=== PATIENT | male | born 1955 | race African-American/Black ===

== ENCOUNTER 2017-07-17 16:30 | Emergency (ER) | payer OTHER ==
[~2017-07-17] VITALS: Ht 182.9 cm; Wt 82.0 kg
[2017-07-17 17:42] VITALS: BP 150/106
[2017-07-17 18:03] LABS: PROTHROMBIN TIME 10.2 sec (9.4-11.6)
[2017-07-17 18:04] LABS: CHLORIDE 105 mEq/L (98-107)
[2017-07-17 18:08] LABS: BASOPHILS % 0.4 % (0.0-2.0); EOSINOPHILS % 0.6 % (0.0-5.0); ETHANOL BLOOD 52 mg/dL; HEMATOCRIT. 43.3 % (42.0-52.0); HEMOGLOBIN. 14.6 g/dL (14.0-18.0); LYMPHOCYTES % 49.2 % (20.0-50.0); MEAN CORPUSCULAR HEMOGLOBIN 31.3 pg (28.0-32.0); MEAN PLATELET VOLUME 7.4 fl (7.4-10.4); MONOCYTES % 7.6 % (2.0-8.0); NEUTROPHILS % 42.2 % (40.0-76.0); PLATELET 248 x1000/uL (130-400); RED BLOOD CELL COUNT 4.66 mill/uL (4.7-6.1); RED CELL DISTRIBUTION WIDTH 13.6 % (11.6-14.6)
[2017-07-17 18:14] LABS: TROPONIN I < 0.02 ng/mL (0.00-0.04)
== END 2017-07-17 19:00 | disposition left against medical advice (07) ==
LOC: EDBD 16:30 → ER 16:30
DX: R55 Syncope and collapse (principal)
CPT/HCPCS: 36415; 70450; 71045; 80053; 82962; 83880; 84484; 85025; 85610; 93005; 99285; G0482; Z7610